=== PATIENT | female | born 1980 | race Caucasian/White ===

== ENCOUNTER 2022-04-19 23:11 | Emergency (ER) | payer SELFPAY ==
[2022-04-20] MEDS ORDERED: Sodium Chloride 0.9% 10 ML Syringe FLUSH PRN (00:04)
[2022-04-20] MEDS ORDERED: Sodium Chloride 0.9% 1,000 ML IV SCH (00:15)
== END 2022-04-20 10:55 | disposition home or self-care (01) ==
LOC: EDBD 23:11 → JD.ED 23:11
DX: T42.4X2A Poisoning by benzodiazepines, intentional self-harm, initial encounter (principal); F32.A Depression, unspecified; Z87.891 Personal history of nicotine dependence
CPT/HCPCS: 36415; 80053; 80143; 80179; 80306; 80307; 85025; 93005; 96360; 96361; 99284; J7030; 93010

== ENCOUNTER 2023-01-05 12:22 | Emergency (ER) | payer MEDICAID ==
[2023-01-05] MEDS ORDERED: Ketorolac 60 MG/2 ML SDV IM ONE (13:21)
== END 2023-01-05 14:00 | disposition home or self-care (01) ==
LOC: JD.ED 12:22
DX: K08.89 Other specified disorders of teeth and supporting structures (principal); Z87.891 Personal history of nicotine dependence
CPT/HCPCS: 96372; 99282; J1885

== ENCOUNTER 2023-03-23 12:02 | Emergency (ER) | payer OTHER, MEDICAID ==
[2023-03-23] MEDS ORDERED: Ketorolac 60 MG/2 ML SDV IM ONE (12:43)
[2023-03-23] MEDS ORDERED: Amoxicillin/Clavulanate K 875-125 MG Tab PO ONE (12:44)
== END 2023-03-23 14:20 | disposition home or self-care (01) ==
LOC: JD.ED 12:02
DX: K08.89 Other specified disorders of teeth and supporting structures (principal); Z79.899 Other long term (current) drug therapy
CPT/HCPCS: 96372; 99282; A9270; J1885

== ENCOUNTER 2023-03-24 05:50 | Emergency (ER) | payer OTHER, MEDICAID ==
[2023-03-24] MEDS ORDERED: Bupivacaine 0.25% 10 ML SDV INJECT ONE (06:12)
[2023-03-24] MEDS ORDERED: Lidocaine 1% 5 ML VIAL INJECT ONE ×3 (06:12→06:29)
[2023-03-24] MEDS ORDERED: Bupivacaine 0.5% 10 ML SDV ONE (06:16)
[2023-03-24] MEDS ORDERED: Lidocaine 1% 30 ML SDV ONE (06:17)
== END 2023-03-24 06:50 | disposition home or self-care (01) ==
LOC: JD.ED 05:50
DX: K04.7 Periapical abscess without sinus (principal); K02.9 Dental caries, unspecified; Z79.899 Other long term (current) drug therapy
CPT/HCPCS: 64400; 99282